=== PATIENT | male | born 1995 | race Caucasian/White ===

== ENCOUNTER 2021-08-11 17:36 | Emergency (ER) | payer SELFPAY ==
[~2021-08-11] VITALS: Ht 172.7 cm; Wt 68.0 kg
--- NOTE | 2021-08-11 17:50 | NUR ---
PT CAME TO ER FOR LACERAION ON R SIDE OF HEAD S/P A PIECE OF CEMENT FELL ON HIS HEAD AT WORK TODAY. AAOX4, BREATHING EVEN AND UNLABORED, NO VOMITING. ASSISTED TO ER BED 1. PT IN CERVICAL COLLAR. VS STABLE
[2021-08-11] MEDS ORDERED: ACETAMINOPHEN 325 MG TABLET PO ONE (18:00)
[2021-08-11] MEDS ORDERED: TDAP [DIPH/PERTUSSIS/TET] 0.5 ML VIAL IM ONE ×2 (18:00→18:53)
[2021-08-11] MEDS ORDERED: LIDOCAINE 1%-EPI 1:100,000 20 ML VIAL TP ONE (18:00)
--- NOTE | 2021-08-11 18:01 | NUR ---
PT TAKEN TO CT
[2021-08-11] MEDS ORDERED: ACETAMINOPHEN ES 500 MG TABLET ONE (18:52)
--- NOTE | 2021-08-11 19:00 | NUR ---
MERCEDES RODRIGUEZ AT BEDSIDE
--- NOTE | 2021-08-11 19:00 | NUR ---
Casper moreno in [facility] - 08/11/21 at 1900 by TAHIR MD AT BEDSIDE
[2021-08-11] MEDS ORDERED: CYCL10TA9 PO (19:14)
[2021-08-11] MEDS ORDERED: NAPR500T6 PO (19:14)
[2021-08-11] MEDS ORDERED: KETOROLAC TROMETHAMINE INJ 30 MG/ML VIAL ONE (19:16)
[2021-08-11 19:30] VITALS: BP 121/62
[2021-08-11] MEDS ORDERED: KETOROLAC TROMETHAMINE INJ 60 MG/2 ML VIAL IM ONE (19:30)
--- NOTE | 2021-08-11 19:30 | NUR ---
Patient discharged to home in stable condition. Written and verbal after care instructions given. Patient verbalizes understanding of instruction.
== END 2021-08-11 19:37 | disposition home or self-care (01) ==
LOC: ER 17:39
DX: S01.01XA Laceration without foreign body of scalp, initial encounter (principal); S16.1XXA Strain of muscle, fascia and tendon at neck level, initial encounter; W13.2XXA Fall from, out of or through roof, initial encounter; Y93.89 Activity, other specified; Y92.89 Other specified places as the place of occurrence of the external cause; Y99.8 Other external cause status
CPT/HCPCS: 12002; 70450; 72125; 90471; 90715; 96372; 99284; J1885; L0172

== ENCOUNTER 2021-08-18 12:10 | Emergency (ER) | payer SELFPAY ==
[~2021-08-18] VITALS: Ht 157.5 cm; Wt 68.0 kg
[~2021-08-18 12:10] MED LIST: CYCL10TA9 PO; NAPR500T6 PO
[2021-08-18 12:18] VITALS: BP 127/82
--- NOTE | 2021-08-18 12:20 | NUR ---
BIBS FOR LOC REMOVAL,HEAD LACERATION STAPLED 6 DAYS AGO. DENIES PAIN. NO S/S INFECTIONS NOTED.
--- NOTE | 2021-08-18 12:45 | NUR ---
Patient discharged to home in stable condition. Written and verbal after care instructions given. Patient verbalizes understanding of instruction.
== END 2021-08-18 12:46 | disposition home or self-care (01) ==
LOC: ER 12:11
DX: S01.01XD Laceration without foreign body of scalp, subsequent encounter (principal); X58.XXXD Exposure to other specified factors, subsequent encounter